=== PATIENT | male | born 1990 | race African-American/Black ===

== ENCOUNTER 2021-08-25 14:34 | Emergency (ER) | payer MEDICAID, OTHER ==
[~2021-08-25] VITALS: Ht 170.2 cm; Wt 81.6 kg
[2021-08-25] MEDS ORDERED: KETOROLAC TROMETH 60MG/2ML VIAL IM ONE (17:00)
[2021-08-25 17:09] VITALS: BP 132/80
[2021-08-25] MEDS ORDERED: TRAM-297 PO (17:29)
== END 2021-08-25 17:54 | disposition home or self-care (01) ==
LOC: ER 14:34
DX: S62.650A Nondisplaced fracture of middle phalanx of right index finger, initial encounter for closed fracture (principal); F17.210 Nicotine dependence, cigarettes, uncomplicated; W21.05XA Struck by basketball, initial encounter; Y93.89 Activity, other specified; Y92.89 Other specified places as the place of occurrence of the external cause; Y99.8 Other external cause status
CPT/HCPCS: 29130; 73140; 96372; 99283; J1885